=== PATIENT | male | born 1965 | race Two or more races ===

== ENCOUNTER 2017-07-22 11:30 | Inpatient (IN) | payer OTHER ==
[~2017-07-22] VITALS: Ht 167.6 cm; Wt 72.6 kg
[2017-07-22] MEDS ORDERED: COZAAR100 MG PO (12:26)
[2017-07-29] MEDS ORDERED: PERCOCET 5-3251 EACH PO (08:06)
[2017-07-29] MEDS ORDERED: CLONAZEPAM1 MG PO (08:06)
[2017-07-29] MEDS ORDERED: DOCUSATE SODIU100 MG PO (08:06)
== END 2017-07-29 12:17 | disposition home or self-care (01) | DRG 472 ==
LOC: O/R 07-28 05:15 → SURH 07-28 10:30 → PED 07-28 13:58
PROVIDERS: Orthopaedic Surgery Orthopaedic Surgery of the Spine
PROC: 0RG20A0 Fusion of 2 or more Cervical Vertebral Joints with Interbody Fusion Device, Anterior Approach, Anterior Column, Open Approach (ICD-10-PCS; 2017-07-28)
PROC: 0RT30ZZ Resection of Cervical Vertebral Disc, Open Approach (ICD-10-PCS; principal; 2017-07-28 10:30)
DX: M47.12 Other spondylosis with myelopathy, cervical region (principal); M50.01 Cervical disc disorder with myelopathy, high cervical region; I10 Essential (primary) hypertension